=== PATIENT | male | born 2000 | race Caucasian/White ===

== ENCOUNTER 2024-12-27 10:51 | Day surgery (SDC) | payer OTHER, SELFPAY ==
[2024-12-27] MEDS ORDERED: Bupivacaine/Epinephrine 0.25% 30 ML VIAL ONE (11:34)
[2024-12-27] MEDS ORDERED: Rocuronium Bromide 10 MG/ML (10ML VIAL) ONE (12:04)
[2024-12-27] MEDS ORDERED: PROPOFOL 20 ML ONE (12:05)
[2024-12-27] MEDS ORDERED: Ondansetron PF 4 MG/2 ML Vial ONE (12:28)
[2024-12-27] MEDS ORDERED: Lidocaine 1% PF 5 ML VIAL ONE (12:28)
[2024-12-27] MEDS ORDERED: HYDROcodone/Acetaminophen 5/325 mg Tablet ONE (13:33)
== END 2024-12-27 14:15 | disposition home or self-care (01) ==
LOC: CSHSDC/OP 10:51
PROVIDERS: ATTEND Surgery
PROC: 0DTJ4ZZ Resection of Appendix, Percutaneous Endoscopic Approach (ICD-10-PCS; principal; 2024-12-27)
DX: K35.200 Acute appendicitis with generalized peritonitis, without perforation or abscess (principal)
CPT/HCPCS: 88304; A4649; C1776; J0694; J1100; J2250; J2405; J2704; J3010